=== PATIENT | female | born 1930 | race Caucasian/White ===

== ENCOUNTER → 2016-11-02 | Outpatient (CLI) | payer MEDICARE, BC ==
[~2016-11-02] MED LIST: BENA20TA2 PO; CARV6.252 PO; HYDR25TA6 PO; SIMV40TA3 PO
== END | disposition home or self-care (01) ==
LOC: CFH 09:40
PROVIDERS: ATTEND Internal Medicine Cardiovascular Disease
DX: I08.0 Rheumatic disorders of both mitral and aortic valves (principal); I10 Essential (primary) hypertension; E78.5 Hyperlipidemia, unspecified; Z85.118 Personal history of other malignant neoplasm of bronchus and lung
CPT/HCPCS: 93306

== ENCOUNTER 2019-06-19 13:05 | Emergency (ER) | payer MEDICARE, BC ==
[~2019-06-19] VITALS: Ht 154.9 cm; Wt 75.6 kg
[~2019-06-19 13:05] MED LIST changes: -BENA20TA2 PO; +BENA20TA54 PO; +SIMV40TA20 PO; -SIMV40TA3 PO
[2019-06-19] MEDS ORDERED: SIMV20TA19 PO (13:57)
[2019-06-19] MEDS ORDERED: CARV12.52 PO (13:57)
--- NOTE | 2019-06-19 14:00 | NUR ---
THIS IS A 88 YO F W/ C/O DIZZINESS THAT STARTED WHEN SHE WOKE UP THIS MORNING. PT REPORTS SHE HAD A SPINNING FEELING. PT REPORTS SHE WENT TO WHERE SHE WAS HYPOTENSIVE AND INSTRUCTED TO FOLLOW UP IN ED. PT DENIES ANY OTHER S/S. PT IS RESTING ON GURNEY, CONNECTED TO ALL MONITORING. CALL LIGHT IN REACH. DENIES FURTHER NEEDS AT THIS TIME.
[2019-06-19] MEDS ORDERED: MECLIZINE CHEWABLE 25 MG TAB ONE (14:13)
--- NOTE | 2019-06-19 14:16 | NUR ---
PT MEDICATED PER EMAR.
[2019-06-19] MEDS ORDERED: MECLIZINE CHEWABLE 25 MG TAB PO ONE (14:30)
--- NOTE | 2019-06-19 14:45 | NUR ---
LAB IN ROOM.
[2019-06-19 14:59] LABS: BASOPHILS # (AUTO) 0.03 x10^3/uL (0-0.1); BASOPHILS % (AUTO) 1 % (0-1); EOSINOPHILS # (AUTO) 0.11 x10^3/uL (0-0.4); EOSINOPHILS % (AUTO) 2 % (1-7); LYMPHOCYTES # (AUTO) 1.52 x10^3/uL (1-3.4); LYMPHOCYTES % (AUTO) 27 % (22-44); MD NO; MEAN CORPUSCULAR HEMOGLOBIN 30.4 pg (27.0-34.8); MEAN CORPUSCULAR HGB CONC 33.3 g/dL (32.4-35.8); MEAN CORPUSCULAR VOLUME 91.4 fL (80-100); MEAN PLATELET VOLUME 9.1 fL (7.4-10.4); MONOCYTES # (AUTO) 0.48 x10^3/uL (0.2-0.8); MONOCYTES % (AUTO) 9 % (2-9); NEUTROPHILS % (AUTO) 62 % (42-75); PLATELET COUNT 235 x10^3/uL (130-400); RED BLOOD COUNT 4.05 x10^6/uL (3.82-5.3); RED CELL DISTRIBUTION WIDTH 14.6 % (9.6-15.2)
[2019-06-19 15:06] LABS: ALBUMIN 3.8 g/dL (3.4-5.0); ANION GAP 7 mmol/L (5-15); CALCIUM 9.2 mg/dL (8.5-10.1); CHLORIDE 107 mmol/L (98-107); CREATININE 0.93 mg/dL (0.55-1.02)
--- NOTE | 2019-06-19 15:15 | NUR ---
PT REPORTS RELIEF OF DIZZINESS AFTER MEDS.
[2019-06-19 15:26] VITALS: BP 137/49
--- NOTE | 2019-06-19 15:39 | NUR ---
Patient given discharge instructions and they have confirmed that they understand the instructions. Patient ambulatory with steady gait.
== END 2019-06-19 15:41 | disposition home or self-care (01) ==
LOC: ED 13:55
DX: H81.399 Other peripheral vertigo, unspecified ear (principal); I10 Essential (primary) hypertension; I25.2 Old myocardial infarction; I44.7 Left bundle-branch block, unspecified
CPT/HCPCS: 36415; 70450; 80048; 82040; 85025; 93005; 99285

== ENCOUNTER → 2020-03-06 | Outpatient (CLI) | payer MEDICARE, BC ==
[~2020-03-06] MED LIST changes: +CARV12.52 PO; +SIMV20TA19 PO
== END | disposition home or self-care (01) ==
LOC: CFH 13:32
PROVIDERS: ATTEND Internal Medicine Cardiovascular Disease
DX: I08.3 Combined rheumatic disorders of mitral, aortic and tricuspid valves (principal)
CPT/HCPCS: 93306